=== PATIENT | male | born 1980 | race Caucasian/White ===

== ENCOUNTER 2018-04-20 18:47 | Emergency (ER) | payer OTHER ==
[2018-04-20] MEDS ORDERED: Lidocaine 2% 20 ML MDV INJECT ONE (18:48)
[2018-04-20] MEDS ORDERED: Amoxicillin/Clavulanate K 875-125 MG Tab PO ONE (20:19)
[2018-04-20] MEDS ORDERED: Diphtheria,Pertussis(Acell),Tetanus Vaccine 0.5 ML SDV IM ONE (20:20)
--- NOTE | 2018-04-20 20:24 | EDM.PDOC ---
ED HPI GENERAL MEDICAL PROBLEM - General Chief Complaint: Upper Extremity Injury/Pain Stated Complaint: CUT FINGER ON LEFT HAND Time Seen by Provider: 04/20/18 18:47 Source of Information: Reports: Patient, Family History Limitations: Reports: No Limitations - History of Present Illness INITIAL COMMENTS - FREE TEXT/NARRATIVE: 37 y.o.w.m came with his family to the ed after he cut by accident in his left finger with a knife at home. There was no loss of function, wound was initially bleeding, which stopped [employer]. No other acute medical issues. No N/V/D od dizziness. BP 142/72 RR 18 Pulse ox 98% 0n RA pulse 76 Temp 36.8 Onset Date: 04/20/18 Onset Time: 15:00 Duration: Constant Location: Reports: Upper Extremity, Left (index finger at home) Quality: Reports: Ache, Burning Severity: Mild Improves with: Reports: Rest Worsens with: Reports: Movement Context: Reports: Trauma Associated Symptoms: Reports: No Other Symptoms left index finger Pain Score (Numeric/FACES): 2 - Related Data Allergies Allergy/AdvReac Type Severity Reaction Status Date / Time No Known Allergies Allergy Verified 04/20/18 19:24 Home Meds: Home Meds Amoxicillin/Potassium Clav [Augmentin 875-125 Tablet] 1 each PO BID #20 tablet 04/20/18 [Rx] Levothyroxine 150 mcg PO DAILY 04/20/18 [History] Lisinopril 20 mg PO DAILY 04/20/18 [History] Loratadine [Claritin] 10 mg PO DAILY 04/20/18 [History] Simvastatin [Zocor] 10 mg PO BEDTIME 04/20/18 [History] Past Medical History Cardiovascular History: Reports: High Cholesterol, Hypertension Social & Family History - Family History Family Medical History: Noncontributory - Tobacco Use Smoking Status *Q: Former Smoker Used Tobacco, but Quit: Yes Month/Year Tobacco Last Used: 120 - Caffeine Use Caffeine Use: Reports: None - Alcohol Use Days Per Week of Alcohol Use: 1 Number of Drinks Per Day: 1 Total Drinks Per Week: 1 - Recreational Drug Use Recreational Drug Use: No Review of Systems - Review of Systems Review Of Systems: See Below Constitutional: Reports: No Symptoms Eyes: Reports: No Symptoms Ears: Reports: No Symptoms Nose: Reports: No Symptoms Mouth/Throat: Reports: No Symptoms Respiratory: Reports: No Symptoms Cardiovascular: Reports: No Symptoms GI/Abdominal: Reports: No Symptoms Genitourinary: Reports: No Symptoms Musculoskeletal: Reports: No Symptoms Skin: Reports: Wound (LAC left index finger) Neurological: Reports: No Symptoms Psychiatric: Reports: No Symptoms ED EXAM, GENERAL - Physical Exam Exam: See Below Exam Limited By: No Limitations General Appearance: Alert, WD/WN, Mild Distress Eye Exam: Bilateral Eye: Normal Inspection Ears: Normal External Exam Ear Exam: Bilateral Ear: Auricle Normal Nose: Normal Inspection, Normal Mucosa Throat/Mouth: Normal Inspection, Normal Lips, Normal Voice, No Airway Compromise Head: Atraumatic, Normocephalic Neck: Normal Inspection, Supple, Non-Tender Respiratory/Chest: No Respiratory Distress, Lungs Clear, Normal Breath Sounds, No Accessory Muscle Use Cardiovascular: Normal Peripheral Pulses, Regular Rate, Rhythm, No Edema, No Gallop, No JVD, No Murmur, No Rub Peripheral Pulses: 1+: Brachial (L) GI/Abdominal: Normal Bowel Sounds, Soft (Male) Exam: Deferred Rectal (Males) Exam: Deferred Back Exam: Normal Inspection, Full Range of Motion Extremities: Normal Range of Motion, Non-Tender, No Pedal Edema, Normal Capillary Refill, Pedal Edema Neurological: Alert, Oriented, CN II-XII Intact, Normal Cognition, Normal Gait, No Motor/Sensory Deficits Psychiatric: Normal Affect, Normal Mood Skin Exam: Warm, Dry, Wound/Incision (laceration Left index finger) Lymphatic: No Adenopathy ED TRAUMA EXTREMITY PROCEDURES - Laceration/Wound Repair Left Hand Lac/Wound Length In cm: 2 Appearance: Subcutaneous, Linear Distal NVT: Neuro & Vascular Intact, No Tendon Injury Anesthetic Type: Local Local Anesthesia - Lidocaine (Xylocaine): 2% Plain Local Anesthetic Volume: 3cc Skin Prep: Chlorhexidine (Hibiciens) Saline Irrigation (cc's): 5 Exploration/Debridement/Repair: Wound Explored, In a Bloodless Field, Explored to Base Closed With: Sutures Suture Size: 4-0 # of Sutures: 3 Sterile Dressing Applied: Nurse Tetanus Status Addressed: Yes (given today) Complications: No Course - Vital Signs Text/Narrative:: 37 y.o.w.m came with his family to the ed after he cut by accident in his left finger with a knife at home. There was no loss of function, wound was initially bleeding, which stopped [employer]. No other acute medical issues. No N/V/D od dizziness. BP 142/72 RR 18 Pulse ox 98% 0n RA pulse 76 Temp 36.8 PE: WNWD W M with left index finger LAC Procedure: Please see note above Impression: Left 1st finger Laceration Tx: Wound repair, TD, Abx Reexam: Improved Plan: D/C with instructions Last Recorded V/S: Last Vital Signs Temp 36.8 C 04/20/18 20:42 Pulse 72 04/20/18 20:42 Resp 18 04/20/18 20:42 BP 136/75 04/20/18 20:42 Pulse Ox 98 04/20/18 20:42 - Orders/Labs/Meds Orders: Active Orders 24 hr Category Date Time Status Vaccines to be Administered [RC] PER UNIT ROUTINE Care 04/20/18 20:20 Active Meds: Medications Discontinued Medications Generic Name Dose Route Start Last Admin Trade Name Larsq PRN Reason Stop Dose Admin Amoxicillin/Clavulanate Potassium 1 tab 04/20/18 20:19 04/20/18 20:40 Augmentin 875 Mg/125 Mg PO 04/20/18 20:20 1 tab ONETIME ONE Administration Diphtheria/Tetanus/Acell Pertussis 0.5 ml 04/20/18 20:20 04/20/18 20:39 Adacel IM 04/20/18 20:21 0.5 ml .ONCE ONE Administration Departure - Departure Time of Disposition: 20:24 Disposition: Home, Self-Care 01 Condition: Good Clinical Impression: Laceration - Discharge Information Prescriptions: Amoxicillin/Potassium Clav [Augmentin 875-125 Tablet] 1 each PO BID #20 tablet Instructions: Amoxicillin capsules or tablets, Laceration Care, Adult, Easy-to- Read, Stitches, Rich, or Adhesive Wound Closure, [id number] Referrals: PCP,None [Primary Care Provider] - Forms: ED Department Discharge Additional Instructions: Please apply Neosporine ointment to wound twice a day for 5 days, please take augmentin as recommended. wound check in 2 days, sure removal in 10-14 days. Please come back if your symptoms get worse acutely - My Orders Last 24 Hours: My Active Orders 04/20/18 20:20 Vaccines to be Administered [RC] PER UNIT ROUTINE - Assessment/Plan Last 24 Hours: My Active Orders 04/20/18 20:20 Vaccines to be Administered [RC] PER UNIT ROUTINE
== END 2018-04-20 20:42 | disposition home or self-care (01) ==
LOC: FB.ED 18:47
DX: S61.211A Laceration without foreign body of left index finger without damage to nail, initial encounter (principal); I10 Essential (primary) hypertension; E78.00 Pure hypercholesterolemia, unspecified; Z23 Encounter for immunization; Z79.899 Other long term (current) drug therapy; Z87.891 Personal history of nicotine dependence; W26.0XXA Contact with knife, initial encounter
CPT/HCPCS: 12001; 90471; 90715; 99283; A9270